=== PATIENT | female | born 1995 | race Caucasian/White ===

== ENCOUNTER 2020-12-07 02:32 | Emergency (ER) | payer OTHER ==
[~2020-12-07 02:32] MED LIST: PREDNISONE 10 M10 MG PO; TESSALON PERLE100 MG PO; ZOFRAN ODT 4 MG4 MG PO
[2020-12-07] MEDS ORDERED: BACTRIM DS TAB1 EACH PO (03:46)
[2020-12-07] MEDS ORDERED: BACITRAYCIN PLU28 GM TP (03:48)
== END 2020-12-07 04:18 | disposition home or self-care (01) ==
LOC: ER1 02:32
DX: L03.116 Cellulitis of left lower limb (principal); J45.909 Unspecified asthma, uncomplicated; I10 Essential (primary) hypertension; F17.200 Nicotine dependence, unspecified, uncomplicated; Z88.0 Allergy status to penicillin
CPT/HCPCS: 99282

== ENCOUNTER 2021-02-05 08:48 | Emergency (ER) | payer OTHER ==
[~2021-02-05 08:48] MED LIST changes: +BACITRAYCIN PLU28 GM TP; +BACTRIM DS TAB1 EACH PO
[2021-02-05] MEDS ORDERED: HYDROCODON-ACE1 EAC4 PO (09:32)
== END 2021-02-05 09:50 | disposition home or self-care (01) ==
LOC: ER1 08:48
DX: S82.831A Other fracture of upper and lower end of right fibula, initial encounter for closed fracture (principal); S70.311A Abrasion, right thigh, initial encounter; F17.200 Nicotine dependence, unspecified, uncomplicated; W17.89XA Other fall from one level to another, initial encounter
CPT/HCPCS: 73590; 73610; 99283